=== PATIENT | female | born 1965 | race Caucasian/White ===

== ENCOUNTER 2021-05-20 08:28 | Outpatient (CLI) | payer BC, SELFPAY ==
--- NOTE | 2021-05-20 | ECG_ITS ---
Measurements Intervals [place] Rate: 62 P: 57 LA: 138 QRS: 42 QRSD: 92 T: 42 QT: 411 QTc: 417 Interpretive Statements SINUS RHYTHM ATRIAL PREMATURE COMPLEXES EARLY PRECORDIAL R/S TRANSITION BORDERLINE ECG Electronically Signed On 05-20-2021 10:00:14 CDT by Corwin Hidalgo D.O.
[2021-05-20 09:29] LABS: Hematocrit 40.2 % (37.0-47.0); Hemoglobin 12.6 g/dL (12.0-15.0); Mean Corpuscular HGB Conc 31.3 g/dl (32-36); Mean Corpuscular Hemoglobin 29.1 pg (26-34); Mean Corpuscular Volume 92.8 fl (80-100); Mean Platelet Volume 9.6 fl (7.4-10.4); Platelet Count Result 245 k/mm3 (150-375); Red Blood Count 4.33 M/mm3 (4.2-5.4); Red Cell Distribution Width 13.6 % (11.5-14.5); White Blood Count 4.4 K/mm3 (4.5-10.0)
[2021-05-20 09:42] LABS: Alanine Aminotransferase 30 U/L (4-35); Albumin Level 4.3 g/dL (3.5-5.1); Alkaline Phosphatase 64 U/L (38-126); Anion Gap 9 mmol/L (8-16); Aspartate Amino Transferase 37 U/L (14-36); Bilirubin,Total 0.5 mg/dL (0.2-1.3); Blood Urea Nitrogen 20 mg/dL (7-17); Calcium 9.6 mg/dL (8.4-10.2); Carbon Dioxide 25 mmol/L (22-30); Chloride 104 mmol/L (98-107); Estimated Glomerular Filt Rate > 60; Glucose 106 mg/dL (65-110); Potassium 4.5 mmol/L (3.4-5.0); Sodium 138 mmol/L (137-145)
[2021-05-20 09:58] LABS: Add Urine Microscopic? YES; Appearance Urine Cloudy (Clear); Bilirubin Urine Negative (Negative); Blood Urine Negative (Negative); Color Urine Yellow (Yellow); Glucose Urine UA Negative (Negative); Ketones Urine Negative (Negative); Leukocyte Esterase Ur Negative LEU/UL (NEGATIVE); Mucus Urine Rare /lpf; Nitrate Urine Negative (Negative); Protein Urine Negative (Negative); RBC Urine 0-2 /hpf (0-2); Specific Grav Ur 1.021 (1.001-1.035); Urobilinogen Urine Negative mg/dL (<2.0); WBC Urine 0-3 /hpf (0-3)
== END 2021-05-20 08:29 | disposition home or self-care (01) ==
PROVIDERS: PCP Family Medicine Sports Medicine; Visit Provider Orthopaedic Surgery Orthopaedic Surgery of the Spine
DX: Z01.818 Encounter for other preprocedural examination (principal); R94.31 Abnormal electrocardiogram [ECG] [EKG]
CPT/HCPCS: 36415; 80053; 81001; 84443; 85027; 93005

== ENCOUNTER → 2021-07-10 14:23 | Outpatient (CLI) | payer BC, SELFPAY ==
--- NOTE | ~2021-07-10 | US_ITS ---
EXAMINATION: US transvaginal DATE: 07/10/2021 14:59 INDICATION: Postmenopausal bleeding Comparison:No prior studies for comparison. TECHNIQUE: Multiple endovaginal sonographic images of the pelvis performed. FINDINGS: The uterus is surgically absent. The ovaries are not visualized, likely atrophic or surgically absent. There is no free fluid in the pelvis. There are no abnormal masses seen on either side. IMPRESSION: 1. Unremarkable pelvic ultrasound. Reviewed, dictated and finalized at location A. [employer]
== END ==
PROVIDERS: PCP Family Medicine Sports Medicine; Visit Provider Nurse Practitioner
DX: Z78.0 Asymptomatic menopausal state (principal)
CPT/HCPCS: 76830

== ENCOUNTER → 2021-10-21 14:34 | Outpatient (CLI) | payer BC, SELFPAY ==
--- NOTE | ~2021-10-21 | CT_ITS ---
EXAMINATION: CT abdomen pelvis w con EXAM DATE: 10/21/2021 15:11 INDICATION: Unspecified abdominal pain. Pain near incision site for lumbar surgery, scar extends from belly button to pubic bone. TECHNIQUE: Spiral CT of the abdomen and pelvis was performed following intravenous injection of 100 m L Omnipaque 350. Axial, coronal and sagittal images of the abdomen and pelvis were reviewed. The do se-length product (DLP) for this examination was 1082.36 mGy-cm. The exposure was tailored according to patient size (auto mA exposure control), and iterative reconstruction (ASIR) was used as addition al dose reduction technique. There is no prior study for comparison. FINDINGS: Small amount of scar tissue seen along the infraumbilical incision site. No abdominal wall hernia or abscess. The liver, spleen, adrenal glands and pancreas are unremarkable. There are kari cystectomy clips. Portal and splenic veins are patent. Kidneys enhance symmetrically. There is no hydronephrosis. The uterus is not identified and has likely been surgically resected. The bladder is unremarkable. There is no retroperitoneal or pelvic lymphadenopathy. The appendix is normal. The stomach and small bowel are unremarkable. There is expected amount of c olonic stool. No free intraperitoneal gas. The heart is normal in size. There are no pericardial or pleural effusions. The lung bases are unremarkable. Lumbar surgical changes with L3-L5 interbod y devices, L4-5 anterior fusion, L3-5 posterior fusion with pedicular screws and laminotomies. IMPRESSION: 1. Small amount of scar tissue along infraumbilical incision site. Reviewed, dictated and finalized at location A.
[2021-10-21 14:59] LABS: Estimated Glomerular Filt Rate > 60
== END ==
PROVIDERS: PCP Family Medicine Sports Medicine; Visit Provider Family Medicine Sports Medicine
DX: R10.9 Unspecified abdominal pain (principal); Z98.890 Other specified postprocedural states
CPT/HCPCS: 74177; Q9967

== ENCOUNTER 2024-05-12 00:58 | Day surgery (SDC) | payer BC, SELFPAY ==
[2024-05-01 12:32] VITALS: BMI 38.0
[2024-05-12 07:35] VITALS: BP 156/79; PULSE 82; RESP 16; TEMP 36.9; O2SAT 100
[2024-05-12] MEDS: LACTATED RINGERS 1,000 ML 150 ML IV CONT (07:45)
[2024-05-12 07:46] LABS: Glucose Point of Care 113 mg/dl (65-105)
--- NOTE | 2024-05-12 07:53 | WPDANESEPPF ---
Anes - Initial Pre Proc Eval Procedure: Operation Date: 05/12/24 09:00 Proposed Procedures p Screening Colonoscopy - Rory Pulido MD Date/Time: 05/12/24 07:53 Surgeon: Rory Pulido MD Pre Op Diagnosis: neoplasm screening Patient Data Age: 59 Gender: F Height: 1.68 m Weight: 105.3 kg Last Vital Signs Temp 98.4 F 05/12/24 07:35 Pulse 82 05/12/24 07:35 Resp 16 05/12/24 07:35 BP 156/79 H 05/12/24 07:35 Pulse Ox 100 05/12/24 07:35 O2 Del Method Room Air 05/12/24 07:35 Allergies Allergy/AdvReac Type Severity Reaction Status Date / Time guaifenesin [From Entex [place]] Allergy Palpitation Verified 05/12/24 07:33 s lisinopril Allergy Palpitation Verified 05/12/24 07:33 s oxycodone Allergy Hives Verified 05/12/24 07:33 phenylephrine [From Entex [place]] Allergy Palpitation Verified 05/12/24 07:33 s phenylpropanolamine Allergy Palpitation Verified 05/12/24 07:33 [From Entex [place]] s Sulfa (Sulfonamide Allergy Palpitation Verified 05/12/24 07:33 Antibiotics) s tramadol Allergy Hives Verified 05/12/24 07:33 Home Medications Medication Instructions Recorded Confirmed Type albuterol sulfate 90 mcg/actuation 2 puff inhalation Q4-5H PRN 05/01/24 05/12/24 History aerosol inhaler Shortness Of Breath Or Wheezing amoxicillin 500 mg capsule 2,000 mg PO PER PKG DIR PRN prior 05/01/24 05/12/24 History to procedures cyanocobalamin (vitamin B-12) 1,000 mcg subcut WEEKLY 05/01/24 05/12/24 History 1,000 mcg/mL injection solution ergocalciferol (vitamin D2) 1,250 1,250 mcg PO WEEKLY 05/01/24 05/12/24 History mcg (50,000 unit) capsule levothyroxine 125 mcg tablet 125 mcg PO DAILY 05/01/24 05/12/24 History (Synthroid) losartan 50 mg-hydrochlorothiazide 1 tablet PO DAILY 05/01/24 05/12/24 History 12.5 mg tablet metformin 500 mg tablet,extended 500 mg PO DAILY 05/01/24 05/12/24 History release 24 hr oxybutynin chloride 5 mg tablet 5 mg PO DAILY 05/01/24 05/12/24 History paroxetine HCl 20 mg tablet 20 mg PO DAILY 05/01/24 05/12/24 History rosuvastatin 20 mg tablet 20 mg PO 2XW 05/01/24 05/12/24 History Laboratory Tests 05/12/24 07:41 POC Capillary Glucose 113 H mg/dl (65-105) Patient hx anesthesia problems: none Family hx anesthesia problems: none Results Review: All pre-operative results and documents have been reviewed as part of the pre-operative evaluation. [facility] Social History Social History Living arrangements: alone Spiritual care concerns: No Anes - Eval Final PreProcedure Day of Procedure 05/12/24 07:53 Patient weight: obese Heart: regular rate and rhythm Lungs: clear to auscultation Airway: Mallampati scale class 1 Neurological: alert and oriented Last oral intake: >/= 8 hours ASA classification: III Emergent: no Anesthetic plan: proceed Anesthesia type and monitoring: general GIVS and standard monitoring Results Review: All pre-operative results and documents have been reviewed as part of the pre-operative evaluation. HTN, hyperlipidemia, DM fsbs 113, hypothyroidism. Informed Consent: The patient's anesthetic plan and its attendant risks and benefits were discussed with the patient/family/POA. Questions were solicited and answers provided to the satisfaction of the patient/family/POA.
--- NOTE | 2024-05-12 08:28 | PM.HPGS ---
History of Present Illness History of Present Illness Consent: Risks, benefits, and alternatives have been discussed and questions answered. Patient agrees to proceed with procedure. Chief complaint: neoplasm screening Narrative: Olya Naqvi is a 59 year old female here for screening colonoscopy, last one 10 years ago Review of Systems Review of Systems: All systems reviewed & are unremarkable except as noted in HPI and below PMFSH Past Medical History Medical History (Updated 05/12/24 @ 08:30 by Rory Pulido MD) Colon cancer screening Social History Social History Living arrangements: alone Spiritual care concerns: No Meds Home Medications and Allergies Home Medications Medication Instructions Recorded Confirmed Type albuterol sulfate 90 mcg/actuation 2 puff inhalation Q4-5H PRN 05/01/24 05/12/24 History aerosol inhaler Shortness Of Breath Or Wheezing amoxicillin 500 mg capsule 2,000 mg PO PER PKG DIR PRN prior 05/01/24 05/12/24 History to procedures cyanocobalamin (vitamin B-12) 1,000 mcg subcut WEEKLY 05/01/24 05/12/24 History 1,000 mcg/mL injection solution ergocalciferol (vitamin D2) 1,250 1,250 mcg PO WEEKLY 05/01/24 05/12/24 History mcg (50,000 unit) capsule levothyroxine 125 mcg tablet 125 mcg PO DAILY 05/01/24 05/12/24 History (Synthroid) losartan 50 mg-hydrochlorothiazide 1 tablet PO DAILY 05/01/24 05/12/24 History 12.5 mg tablet metformin 500 mg tablet,extended 500 mg PO DAILY 05/01/24 05/12/24 History release 24 hr oxybutynin chloride 5 mg tablet 5 mg PO DAILY 05/01/24 05/12/24 History paroxetine HCl 20 mg tablet 20 mg PO DAILY 05/01/24 05/12/24 History rosuvastatin 20 mg tablet 20 mg PO 2XW 05/01/24 05/12/24 History Allergies Allergy/AdvReac Type Severity Reaction Status Date / Time guaifenesin [From Entex [place]] Allergy Palpitation Verified 05/12/24 07:33 s lisinopril Allergy Palpitation Verified 05/12/24 07:33 s oxycodone Allergy Hives Verified 05/12/24 07:33 phenylephrine [From Entex [place]] Allergy Palpitation Verified 05/12/24 07:33 s phenylpropanolamine Allergy Palpitation Verified 05/12/24 07:33 [From Entex [place]] s Sulfa (Sulfonamide Allergy Palpitation Verified 05/12/24 07:33 Antibiotics) s tramadol Allergy Hives Verified 05/12/24 07:33 Vital Signs Vital Signs - 24 hr 05/12/24 07:35 Temperature 98.4 F Pulse Rate 82 Respiratory Rate 16 Blood Pressure 156/79 H Pulse Oximetry 100 Oxygen Delivery Room Air Exam Const: General: comfortable and no acute distress HENMT: Face/Nose/Sinus: Normal nares present Eyes: General: appearance normal, both eyes and all related structures Neck: Neck: no JVD Resp: Auscultation: clear to auscultation bilaterally Cardio: Rate: regular rate Rhythm: regular rhythm GI: Inspection: non-distended GI Palp: Yes Soft to palpation Skin: General skin exam: normal color Neuro: General: gait normal Speech: normal speech Extrem: General: normal to inspection Psych: Mental Status: mental status grossly normal Assessment and Plan Assessment and plan (1) Colon cancer screening: Code(s): Z12.11 - Encounter for screening for malignant neoplasm of colon Status: Acute Assessment and Plan: colonoscopy
[2024-05-12 08:42] VITALS: BP 97/53; PULSE 60; RESP 22; O2SAT 99
[2024-05-12 08:52] VITALS: BP 96/62; PULSE 62; RESP 23; O2SAT 100
[2024-05-12 09:02] VITALS: BP 113/70; PULSE 68; RESP 23; O2SAT 99
== END 2024-05-12 09:10 | disposition home or self-care (01) ==
PROVIDERS: PCP Family Medicine; Referring Provider Nurse Practitioner; Visit Provider Internal Medicine Gastroenterology
PROC: 0DJD8ZZ Inspection of Lower Intestinal Tract, Via Natural or Artificial Opening Endoscopic (ICD-10-PCS; CPT 45378; principal; 2024-05-12 09:00)
DX: Z12.11 Encounter for screening for malignant neoplasm of colon (principal); K64.8 Other hemorrhoids; E66.9 Obesity, unspecified; Z68.37 Body mass index [BMI] 37.0-37.9, adult; Z79.51 Long term (current) use of inhaled steroids; Z79.84 Long term (current) use of oral hypoglycemic drugs
CPT/HCPCS: 45378; 82948; J2704; J7120